=== PATIENT | male | born 1990 | race African-American/Black ===

== ENCOUNTER 2020-08-17 12:17 | Emergency (ER) | payer MEDICAID, OTHER ==
[~2020-08-17] VITALS: Ht 10.2 cm; Wt 68.0 kg
[2020-08-17 12:45] VITALS: BP 139/81
== END 2020-08-17 13:33 | disposition home or self-care (01) ==
LOC: ER 12:17
DX: Z21 Asymptomatic human immunodeficiency virus [HIV] infection status (principal); Z76.0 Encounter for issue of repeat prescription